=== PATIENT | female | born 1975 | race Caucasian/White ===

== ENCOUNTER 2022-05-16 08:29 | Outpatient (CLI) | payer OTHER | END 2022-05-16 08:30 | disposition home or self-care (01) | LOC: CSHMAMMO 08:29 | PROVIDERS: ATTEND Physician Assistant | DX: Z12.31 Encounter for screening mammogram for malignant neoplasm of breast (principal); Z80.3 Family history of malignant neoplasm of breast; Z98.82 Breast implant status | CPT/HCPCS: 77063; 77067 ==

== ENCOUNTER 2022-07-31 09:00 | Outpatient (CLI) | payer OTHER | END 2022-07-31 09:01 | disposition home or self-care (01) | LOC: CSHLAB 09:00 | PROVIDERS: ATTEND Obstetrics & Gynecology | DX: Z01.812 Encounter for preprocedural laboratory examination (principal); D25.9 Leiomyoma of uterus, unspecified | CPT/HCPCS: 84703; 85027; 86850; 86900; 86901 ==

== ENCOUNTER 2022-08-02 05:40 | Day surgery (SDC) | payer OTHER ==
[2022-07-31 09:45] LABS: Hemoglobin 13.7 g/dL (12.0-15.5); Mean Corpuscular HGB CONC 33.9 g/dL (32.0-36.0); Mean Corpuscular Hemoglobin 29.5 pg (27.0-33.0); Mean Corpuscular Volume 87.1 fl (81.6-98.3); Mean Platelet Volume 10.2 fl (7.4-10.4); Platelet Count 219 10x3/uL (150-450); RBC Distribution Width 12.2 % (11.5-14.5); Red Blood Cell (RBC) Count 4.64 10x6/uL (3.90-5.03); White Blood Cell (WBC) Count 5.7 10x3/uL (3.5-10.5)
[2022-07-31 10:19] LABS: BHCG - Serum Negative (NEGATIVE); Pregs Control Background? CLEAR/WHITE (CLR/WHITE); Pregs Control Bar Appear? YES (CONTROL BAR)
[2022-08-01 11:45] VITALS: BMI 26.6
[2022-08-02] MEDS ORDERED: CeleCOXIB 100 MG CAP ONE (06:25)
[2022-08-02] MEDS ORDERED: Gabapentin 300 MG CAP ONE (06:26)
[2022-08-02] MEDS ORDERED: Famotidine/PF 20 mg/2ml Vial ONE (06:26)
[2022-08-02] MEDS ORDERED: EPINEPHrine 1 MG/ML AMP ONE (06:30)
[2022-08-02] MEDS ORDERED: Bupivacaine PF 0.5% 30 ML VIAL ONE (06:30)
[2022-08-02] MEDS ORDERED: HYDROmorphone 0.5 MG/0.5 ML SYRINGE ONE (07:11)
[2022-08-02] MEDS ORDERED: SUGAMMADEX SODIUM 200 MG/2 ML VIAL ONE (07:11)
[2022-08-02] MEDS ORDERED: Propofol 1,000 MG/100 ML VIAL IV ONE (07:11)
[2022-08-02] MEDS ORDERED: Rocuronium Bromide 10 MG/ML (10ML VIAL) ONE (07:12)
[2022-08-02] MEDS ORDERED: Dexamethasone 4 mg/ml Vial ONE (07:12)
[2022-08-02] MEDS ORDERED: Ketorolac Tromethamine 30 MG/ML VIAL ONE (07:12)
[2022-08-02] MEDS ORDERED: Ondansetron PF 4 MG/2 ML Vial ONE (07:12)
[2022-08-02] MEDS ORDERED: Midazolam HCl 2 mg/2 ml Vial ONE (07:12)
[2022-08-02] MEDS ORDERED: Lidocaine 1% PF 5 ML VIAL ONE (07:13)
[2022-08-02] MEDS ORDERED: Esmolol 100 MG/10 ML VIAL ONE (07:13)
[2022-08-02] MEDS ORDERED: CEFAZOLIN 2 GM VIAL ONE (07:16)
== END 2022-08-02 12:45 | disposition home or self-care (01) ==
LOC: CSHSDC 05:40
PROVIDERS: ATTEND Obstetrics & Gynecology
PROC: 0UT74ZZ Resection of Bilateral Fallopian Tubes, Percutaneous Endoscopic Approach (ICD-10-PCS; principal; 2022-08-02)
PROC: 0UT94ZZ Resection of Uterus, Percutaneous Endoscopic Approach (ICD-10-PCS; principal; 2022-08-02)
DX: D25.9 Leiomyoma of uterus, unspecified (principal); N80.03 Adenomyosis of the uterus; N94.6 Dysmenorrhea, unspecified; N73.6 Female pelvic peritoneal adhesions (postinfective); Z79.899 Other long term (current) drug therapy
CPT/HCPCS: 84703; 85027; 86850; 86900; 86901; 88307; C1776; J0171; J1100; J1170; J1885; J2250; J2405; J2704; S0020; S0028

== ENCOUNTER 2023-01-18 07:28 | Outpatient (CLI) | payer OTHER | END 2023-01-18 07:29 | disposition home or self-care (01) | LOC: CSHCT 07:28 | PROVIDERS: ATTEND Physician Assistant | DX: R10.84 Generalized abdominal pain (principal) | CPT/HCPCS: 74177 ==

== ENCOUNTER 2023-02-01 08:33 | Day surgery (SDC) | payer OTHER ==
[2023-01-31 11:56] VITALS: BMI 28.6
[2023-02-01] MEDS ORDERED: Midazolam HCl 2 mg/2 ml Vial ONE (09:37)
== END 2023-02-01 10:30 | disposition home or self-care (01) ==
LOC: CSHSDC 08:33
PROVIDERS: ATTEND Internal Medicine Gastroenterology
PROC: 0D968ZX Drainage of Stomach, Via Natural or Artificial Opening Endoscopic, Diagnostic (ICD-10-PCS; principal; 2023-02-01)
DX: K29.50 Unspecified chronic gastritis without bleeding (principal); K22.10 Ulcer of esophagus without bleeding; K31.89 Other diseases of stomach and duodenum; K30 Functional dyspepsia; K21.9 Gastro-esophageal reflux disease without esophagitis; F41.9 Anxiety disorder, unspecified; G43.909 Migraine, unspecified, not intractable, without status migrainosus; Z88.2 Allergy status to sulfonamides; Z79.899 Other long term (current) drug therapy
CPT/HCPCS: 88305; J2250

== ENCOUNTER 2023-05-30 10:38 | Outpatient (CLI) | payer OTHER | END 2023-05-30 10:39 | disposition home or self-care (01) | LOC: CSHMAMMO 10:38 | PROVIDERS: ATTEND Physician Assistant | DX: Z12.31 Encounter for screening mammogram for malignant neoplasm of breast (principal); Z98.82 Breast implant status | CPT/HCPCS: 77063; 77067 ==

== ENCOUNTER 2024-06-03 08:11 | Outpatient (CLI) | payer OTHER | END 2024-06-03 08:12 | disposition home or self-care (01) | LOC: CSHMAMMO 08:11 | PROVIDERS: ATTEND Physician Assistant | DX: Z12.31 Encounter for screening mammogram for malignant neoplasm of breast (principal); Z80.3 Family history of malignant neoplasm of breast; Z98.82 Breast implant status | CPT/HCPCS: 77063; 77067 ==